=== PATIENT | male | born 1955 | race Caucasian/White ===

== ENCOUNTER 2022-03-18 16:34 | Emergency (ER) | payer OTHER, SELFPAY ==
[2022-03-18 16:39] VITALS: BP 112/78; PULSE 69; RESP 18; TEMP 37; O2SAT 99; BMI 23.2
--- NOTE | 2022-03-18 16:41 | ED_ITS ---
HPI - Wound/Laceration General Time Seen by Provider: 16:41 Date Seen: 03/18/22 Chief Complaint: Laceration/Wound Stated Complaint: Left Index Finger Lac - Hatchet Time Seen by Provider: 03/18/22 16:39 Source: patient and RN notes reviewed Mode of arrival: ambulatory Limitations: no limitations History of Present Illness HPI narrative: Patient is a 66-year-old male coming in with a left finger laceration. He was cutting wood for his fire stove with a hatchet and accidentally cut his left 2nd finger. He feels it is deep. [place] is [place] in outside of the left 2nd finger. He denies any numbness tingling. He had his tetanus updated on 03/11/2022. He states the finger bled quite a bit, did stop with the dressing he put on it. No blood thinners, nothing else was injured. This happened just prior to arrival. Onset (ago): minute(s) Location: other (Left 2nd finger) Patient tetanus UTD: Yes Context: accidental Treatments prior to arrival: bandage Related Data Home Medications Medication Instructions Recorded Confirmed No Known Home Medications 03/18/22 03/18/22 Allergies Allergy/AdvReac Type Severity Reaction Status Date / Time amoxicillin Allergy Verified 03/18/22 16:40 Review of Systems Narrative: As per HPI Exam Const: Vital Signs, click to edit/add: Vital Signs - 24 hr 03/18/22 16:39 Temperature 98.6 F Pulse Rate [Right Pulse Oximeter] 69 Respiratory Rate 18 Blood Pressure [Ri ght Upper Arm] 112/78 Pulse Oximetry 99 Oxygen Delivery Me thod Room Air Documenting provider has reviewed patient's vital signs: yes Common normals: no apparent distress, average body habitus, healthy appearing and alert Other: Had a dressing on the left 2nd finger with no active bleeding. When the dressing was removed he had a V shaped laceration along the lateral proximal digit just after the metacarpophalangeal joint. It did extend into the subcutaneous tissue but not deeper. There was actively oozing whenever pressure was taken off. That this would benefit in require sutures, patient agrees. He had normal distal sensation, full range of motion of his finger without any limitations. Strength on flexion and extension throughout this digit was preserved. Neuro: Sensorium/orientation: alert Course Vital Signs Vital signs: Initial Vital Signs Temperature 98.6 F 03/18/22 16:39 Temperature Source Temporal Artery Scan 03/18/22 16:39 Pulse Rate 69 03/18/22 16:39 Respiratory Rate 18 03/18/22 16:39 Blood Pressure 112/78 03/18/22 16:39 Blood Pressure Mean 89 03/18/22 16:39 Blood Pressure Position Sitting 03/18/22 16:39 Pulse Oximetry 99 03/18/22 16:39 Oxygen Delivery Method 03/18/22 16:39 Vital Signs Temperature 98.6 F 03/18/22 16:39 Pulse Rate 69 03/18/22 16:39 Respiratory Rate 18 03/18/22 16:39 Blood Pressure 112/78 03/18/22 16:39 Pulse Oximetry 99 03/18/22 16:39 Oxygen Delivery Method 03/18/22 16:39 Temperature 98.6 F 03/18/22 16:39 Pulse Rate 69 03/18/22 16:39 Respiratory Rate 18 03/18/22 16:39 Blood Pressure 112/78 03/18/22 16:39 Pulse Oximetry 99 03/18/22 16:39 Oxygen Delivery Method 03/18/22 16:39 Critical Care Time Critical Care Time Critical Care Time: No Discharge Plan Discharge Clinical Impression: Finger laceration Patient Disposition: Home, Self-Care Condition: Stable Instructions: Care For Your Stitches (ED), Finger Laceration (ED) Additional Instructions: May bathe and wash hands as you normally would but otherwise keep this wound clean and dry until healed. Use bandages to protect the wound from infection if you are out in public or if active with this hand. Can use bacitracin and bandages as needed for a dressing. If there is any concern for infection, need to seek re-evaluation. Otherwise, schedule a clinic appointment for March 26 in clinic to assess the wound for suture removal. Activity Level: Activity as Tolerated Prescriptions: No Action No Known Home Medications Follow Up/Referrals: Aly Lopez MD [Primary Care Provider] - Stand Alone Forms: [facility] Info Instructions Procedures Laceration Laceration 1: Pre procedure diagnosis: Finger laceration Post procedure diagnosis: Same Site marking: not applicable Name of person performing procedure: Lucila Marcelo Site: hand Side (If applicable): left Size (cm): 1 Description: other (V shaped) Depth: simple, single layer Local Anesthetic: lidocaine 1% and with epi Amount of anesthesia used (mL): 5 (4 mL were infiltrated around the wound which was adequate for anesthesia) Skin layer closed with: other (Ethilon) Size (cm): 4-0 Number of sutures: 5 Technique: simple, interrupted Estimated blood loss (if any): less than 5mls Conclusion: patient tolerated procedure
== END 2022-03-18 17:22 | disposition home or self-care (01) ==
PROVIDERS: Emergency Provider Family Medicine; PCP Family Medicine
DX: S61.211A Laceration without foreign body of left index finger without damage to nail, initial encounter (principal); W27.0XXA Contact with workbench tool, initial encounter
CPT/HCPCS: 12001; 99283

== ENCOUNTER 2022-08-17 20:04 | Outpatient (CLI) | payer MEDICARE, BC, SELFPAY | END 2022-08-17 20:05 | disposition home or self-care (01) | LOC: AMB 08-24 09:51 | PROVIDERS: PCP Family Medicine; Visit Provider Family Medicine | DX: R55 Syncope and collapse (principal) | CPT/HCPCS: A0425; A0427 ==

== ENCOUNTER 2022-08-17 20:38 | Emergency (ER) | payer MEDICARE, BC, SELFPAY ==
[2022-08-17] VITALS (7 sets, daily range): BP systolic 114–138; BP diastolic 76–83; PULSE 76–89; RESP 16; TEMP 35.9–36.6; O2SAT 94–98; BMI 23.5
--- NOTE | 2022-08-17 21:03 | CRLHL7_ITS ---
For Patients: As a result of the Century Cures Act, medical imaging exams and procedure reports are released immediately into your electronic medical record. You may view this report before your referring provider. If you have questions, please contact your health care provider. INDICATION: Syncope. TECHNIQUE: Noncontrast CT images acquired through the brain. COMPARISON: CT brain 10/27/2019. FINDINGS: Mild diffuse cerebral volume loss. No mass effect or midline shift. The sanchez-white differentiation is maintained. No acute intracranial hemorrhage age or pathologic extra-axial fluid collection. Atherosclerotic calcifications in the carotid siphons. The globes are symmetric. The calvarium is intact. The right maxillary sinus is completely opacified, contains heterogeneous hyperattenuation, and demonstrates mucoperiosteal wall thickening. Opacification of the right middle meatus. The mastoid air cells are clear. IMPRESSION: 1. No acute intracranial hemorrhage or mass effect. 2. Severe opacification of the right maxillary sinus and sequelae of chronic sinusitis. Heterogeneous intrasinus hyperattenuation may be secondary to inspissated secretions or fungal colonization. The right middle meatus is opacified. Findings raise the possibility of an underlying sinonasal lesion or mucocele. ENT follow-up is recommended. Please note that all CT scans at this facility use dose modulation, iterative reconstruction, and/or weight-based dosing when appropriate to reduce radiation dose to as low as reasonably achievable. Dictated by Sravan Zayas MD @ 08/17/2022 9:48:03 PM (Electronically Signed)
[2022-08-17] MEDS: LACTATED RINGERS 1000 ML 1,000 ML IV (21:04)
[2022-08-17 21:15] LABS: Basophils Absolute Auto 0.02 K/uL (0.00-0.30); Basophils Percent Auto 0.3 % (0.0-3.0); Hematocrit 39.9 % (37.0-53.0); Hemoglobin* 13.4 gm/dL (13.5-17.5); Lymphocytes Percent Auto 9.8 % (20-44); Mean Corpuscular HGB Conc 34 gm/dL (32-36); Mean Corpuscular Hemoglobin 31 pg (26-34); Mean Corpuscular Volume 93 fL (80-100); Monocytes Percent Auto 4.4 % (0.0-11.0); Neutrophils Percent Auto 85.5 % (42.0-72.0); Platelet Count* 200 K/uL (140-440); RDW Coefficient of Variation % 11.9 % (11.5-15.5); Red Blood Count 4.27 m/uL (4.30-5.90); White Blood Count* 7.56 K/uL (4.50-11.00)
[2022-08-17 21:16] LABS: Slide Review Reflex No
[2022-08-17 21:32] LABS: Chloride* 109 mmol/L (96-114); Sodium* 140 mmol/L (135-149)
[2022-08-17 21:33] LABS: Potassium* 4.9 mmol/L (3.6-5.1)
[2022-08-17 21:35] LABS: Alanine Aminotransferase* 21 U/L (4-50); Alkaline Phosphatase* 51 U/L (40-150); Aspartate Amino Transferase* 25 U/L (12-35); Bilirubin Total* 0.3 mg/dL (0.1-1.5); Blood Urea Nitrogen* 27 mg/dL (7-30); Carbon Dioxide* 23 mmol/L (20-32); Creatinine* 1.2 mg/dL (0.5-1.5); Est. Creatinine Clearance* 69.36; Estimated Glomerular Filt Rate 67 ml/min; Glucose* 107 mg/dL (60-115); Total Protein* 6.6 g/dL (6.0-8.3)
[2022-08-17 21:36] LABS: Calcium* 9.5 mg/dL (8.4-10.6)
[2022-08-17 21:47] LABS: Troponin I* 0.01 ng/mL (0.01-0.04)
--- NOTE | 2022-08-17 23:01 | ED_ITS ---
HPI - General Adult General Date Seen: 08/17/22 Chief complaint: Syncope/Fainted Stated complaint: Syncope Time Seen by Provider: 08/17/22 20:45 Source: patient Mode of arrival: EMS Limitations: no limitations History of Present Illness HPI narrative: Patient is a 67-year-old male who was out for a two or bike ride with his normal group. He felt fine during the ride although did notice the air pollution. No significant breathing issues. After the ride they went to a local brewery and he had one beer. Towards the end of the beer he felt his vision closing in and got sweaty and pale. As he lost consciousness his friends lowered him to the ground. Two retired physician's were with him. There is no seizure activity. No palpitations preceding this. As he came to and attempted to sit up he felt lightheaded again and was laid back down. EMS was called and they found him to have a blood pressure of 60/27. He was given 500 mL of fluid and brought to the emergency department. Denies any chest pains, palpitations, shortness of breath. He had one brief and less severe episode like this a couple of weeks ago. He takes no medications regularly. He felt that he was well hydrated. He did eat lunch today and did eat a salad before his bike ride. Related Data Previous Rx's Medication Instructions Recorded cefdinir 300 mg capsule 300 mg PO BID #20 caps 08/17/22 fluticasone propionate 50 2 spray intranasal DAILY #16 grams 08/17/22 mcg/actuation nasal spray,suspension (Flonase Allergy Relief) Allergies Allergy/AdvReac Type Severity Reaction Status Date / Time amoxicillin Allergy Verified 03/18/22 16:40 Review of Systems Narrative: Review of systems is positive for chronic nasal congestion and some headaches over the past week or two. Review of systems in all other areas is noted to be negative. [facility] Medical History (Updated 08/17/22 @ 22:12 by Ousmane Craig MD) Asthma ?J45.909 - Unspecified asthma, uncomplicated (ICD-10) Social History Smoking Status: Never smoker Do you use any of these nicotine containing products: None How often do you have a drink containing alcohol: monthly or less AUDIT-C Alcohol total score: 1 Non-prescribed substance use: denies use Exam Narrative: Exam Narrative: Vitals noted. He is no longer hypotensive or tachycardic. HEENT: Conjunctiva clear. Tympanic membranes are pearly white bilaterally. Right nasal congestion. Mild tenderness over the right maxillary sinus. Posterior pharynx is clear without erythema or exudate. Neck is supple without adenopathy, thyromegaly, carotid bruit. Lungs: Clear to auscultation in all calderon. No wheezes, rales, rhonchi. Heart: Regular rate and rhythm without murmur. Abdomen: Soft and nontender. No guarding, rigidity, rebound. Bowel sounds are normal. No palpable masses. Extremities: No cyanosis or edema. Good distal pulses. Skin: No abnormalities noted of the exposed skin. Neurologic: Awake, alert, fully oriented. Neurologic exam is nonfocal. Const: Vital Signs, click to edit/add: Vital Signs - 24 hr 08/17/22 20:43 08/17/22 20:54 08/17/22 21:02 Temperature 96.7 F L 97.8 F Pulse Rate 83 Pulse Rate [Left P ulse Oximeter] 79 Pulse Rate [orthos tatic lying] Pulse Rate [orthos tatic sitting] Pulse Rate [orthos tatic standing] Respiratory Rate 16 16 16 Blood Pressure 123/80 Blood Pressure [Ri ght Upper Arm] 120/80 114/76 Blood Pressure [or thostatic lying] Blood Pressure [or thostatic sitting] Blood Pressure [or thostatic standing ] Pulse Oximetry 98 97 97 Oxygen Delivery Me od Room Air Room Air 08/17/22 21:32 08/17/22 21:47 08/17/22 22:02 Temperature Pulse Rate 81 76 82 Pulse Rate [Left P ulse Oximeter] Pulse Rate [orthos tatic lying] Pulse Rate [orthos tatic sitting] Pulse Rate [orthos tatic standing] Respiratory Rate Blood Pressure 126/79 124/76 138/83 Blood Pressure [Ri ght Upper Arm] Blood Pressure [or thostatic lying] Blood Pressure [or thostatic sitting] Blood Pressure [or thostatic standing ] Pulse Oximetry 96 94 95 Oxygen Delivery Me thod 08/17/22 22:26 Temperature Pulse Rate Pulse Rate [Left P ulse Oximeter] Pulse Rate [orthos tatic lying] 89 Pulse Rate [orthos tatic sitting] 82 Pulse Rate [orthos tatic standing] 79 Respiratory Rate Blood Pressure Blood Pressure [Ri ght Upper Arm] Blood Pressure [or thostatic lying] 132/81 Blood Pressure [or thostatic sitting] 134/79 Blood Pressure [or thostatic standing ] 126/83 Pulse Oximetry Oxygen Delivery Me thod Course Course Hospital Course: Patient seen and examined. IV is established and he is given a L of lactated Ringer's. Labs are ordered. CT of his head without contrast is ordered. Reevaluation(s) Reevaluation #1: His labs are all returned with normal findings including CBC, BMP, LFTs, troponin. TSH is mildly elevated at 6.76. He has no further lightheadedness since the IV fluids. The CT of his head does show complete opacification of his right maxillary sinus and an underlying mass cannot be fully excluded. He does tell me that he has had some congestion in his right cheek as well as headaches. Vital Signs Vital signs: Initial Vital Signs Temperature 96.7 F L 08/17/22 20:43 Temperature Source Temporal Artery Scan 08/17/22 20:43 Pulse Rate 79 08/17/22 20:43 Pulse Rhythm Regular 08/17/22 20:43 Respiratory Rate 16 08/17/22 20:43 Blood Pressure 120/80 08/17/22 20:43 Blood Pressure Mean 93 08/17/22 20:43 Blood Pressure Position Supine 08/17/22 20:43 Pulse Oximetry 98 08/17/22 20:43 Oxygen Delivery Method Room Air 08/17/22 20:43 Vital Signs Temperature 96.7 F L 08/17/22 20:43 Pulse Rate 79 08/17/22 20:43 Respiratory Rate 16 08/17/22 20:43 Blood Pressure 120/80 08/17/22 20:43 Pulse Oximetry 98 08/17/22 20:43 Oxygen Delivery Method Room Air 08/17/22 20:43 Temperature 97.8 F 08/17/22 21:02 Pulse Rate 89 08/17/22 22:26 Respiratory Rate 16 08/17/22 21:02 Blood Pressure 132/81 08/17/22 22:26 Pulse Oximetry 95 08/17/22 22:02 Oxygen Delivery Method Room Air 08/17/22 20:54 Medical Decision Making MDM Narrative Medical decision making narrative: I suspect that his syncope was related to over exertion in the heat and some component of dehydration. Nothing to suggest arrhythmia. In regard to his chronic appearing a right maxillary sinusitis I have opted to treat him with Omnicef and Flonase and have him follow-up with ENT. Lab Data Labs: Lab Results 08/17/22 08/17/22 08/17/22 Range/Units 21:10 21:10 21:10 WBC 7.56 (4.50-11.00) K/uL RBC 4.27 L (4.30-5.90) m/uL Hgb 13.4 L (13.5-17.5) gm/dL Hct 39.9 (37.0-53.0) % MCV 93 (80-100) fL MCH 31 (26-34) pg MCHC 34 (32-36) gm/dL RDW Coeff of Maxine 11.9 (11.5-15.5) % Plt Count 200 (140-440) K/uL Neut % (Auto) 85.5 H (42.0-72.0) % Lymph % (Auto) 9.8 L (20-44) % Houghton % (Auto) 4.4 (0.0-11.0) % Eos % (Auto) 0.0 (0.0-7.0) % Baso % (Auto) 0.3 (0.0-3.0) % Neut # (Auto) 6.50 (1.7-7.0) K/uL Lymph # (Auto) 0.70 L (0.90-2.90) K/uL [place] # (Auto) 0.30 (0.00-0.90) K/UL Eos # (Auto) 0.00 (0.00-0.50) K/uL Baso # (Auto) 0.02 (0.00-0.30) K/uL Sodium 140 (135-149) mmol/L Potassium 4.9 (3.6-5.1) mmol/L Chloride 109 (96-114) mmol/L Carbon Dioxide 23 (20-32) mmol/L BUN 27 (7-30) mg/dL Creatinine 1.2 (0.5-1.5) mg/dL Estimated Creat Clear 69.36 Estimated GFR 67 ml/min Glucose 107 (60-115) mg/dL Calcium 9.5 (8.4-10.6) mg/dL Total Bilirubin 0.3 Cancelled (0.1-1.5) mg/dL Direct Bilirubin 0.0 Cancelled (0.0-0.5) mg/dL AST 25 (12-35) U/L ALT (4-50) U/L Alkaline Phosphatase (40-150) U/L Troponin I (0.01-0.04) ng/mL Total Protein (6.0-8.3) g/dL Albumin (3.3-5.0) g/dL TSH (0.270-4.20) uIU/mL 08/17/22 08/17/22 08/17/22 Range/Units 21:10 21:10 21:10 WBC (4.50-11.00) K/uL RBC (4.30-5.90) m/uL Hgb (13.5-17.5) gm/dL Hct (37.0-53.0) % MCV (80-100) fL MCH (26-34) pg MCHC (32-36) gm/dL RDW Coeff of Maxine (11.5-15.5) % Plt Count (140-440) K/uL Neut % (Auto) (42.0-72.0) % Lymph % (Auto) (20-44) % Houghton % (Auto) (0.0-11.0) % Eos % (Auto) (0.0-7.0) % Baso % (Auto) (0.0-3.0) % Neut # (Auto) (1.7-7.0) K/uL Lymph # (Auto) (0.90-2.90) K/uL [place] # (Auto) (0.00-0.90) K/UL Eos # (Auto) (0.00-0.50) K/uL Baso # (Auto) (0.00-0.30) K/uL Sodium (135-149) mmol/L Potassium (3.6-5.1) mmol/L Chloride (96-114) mmol/L Carbon Dioxide (20-32) mmol/L BUN (7-30) mg/dL Creatinine (0.5-1.5) mg/dL Estimated Creat Clear Estimated GFR ml/min Glucose (60-115) mg/dL Calcium (8.4-10.6) mg/dL Total Bilirubin (0.1-1.5) mg/dL Direct Bilirubin (0.0-0.5) mg/dL AST Cancelled (12-35) U/L ALT 21 Cancelled (4-50) U/L Alkaline Phosphatase 51 Cancelled (40-150) U/L Troponin I 0.01 (0.01-0.04) ng/mL Total Protein 6.6 (6.0-8.3) g/dL Albumin (3.3-5.0) g/dL TSH (0.270-4.20) uIU/mL 08/17/22 08/17/22 Range/Units 21:10 21:10 WBC (4.50-11.00) K/uL RBC (4.30-5.90) m/uL Hgb (13.5-17.5) gm/dL Hct (37.0-53.0) % MCV (80-100) fL MCH (26-34) pg MCHC (32-36) gm/dL RDW Coeff of Maxine (11.5-15.5) % Plt Count (140-440) K/uL Neut % (Auto) (42.0-72.0) % Lymph % (Auto) (20-44) % [place] % (Auto) (0.0-11.0) % Eos % (Auto) (0.0-7.0) % Baso % (Auto) (0.0-3.0) % Neut # (Auto) (1.7-7.0) K/uL Lymph # (Auto) (0.90-2.90) K/uL [place] # (Auto) (0.00-0.90) K/UL Eos # (Auto) (0.00-0.50) K/uL Baso # (Auto) (0.00-0.30) K/uL Sodium (135-149) mmol/L Potassium (3.6-5.1) mmol/L Chloride (96-114) mmol/L Carbon Dioxide (20-32) mmol/L BUN (7-30) mg/dL Creatinine (0.5-1.5) mg/dL Estimated Creat Clear Estimated GFR ml/min Glucose (60-115) mg/dL Calcium (8.4-10.6) mg/dL Total Bilirubin (0.1-1.5) mg/dL Direct Bilirubin (0.0-0.5) mg/dL AST (12-35) U/L ALT (4-50) U/L Alkaline Phosphatase (40-150) U/L Troponin I (0.01-0.04) ng/mL Total Protein Cancelled (6.0-8.3) g/dL Albumin 4.0 Cancelled (3.3-5.0) g/dL TSH 6.760 H (0.270-4.20) uIU/mL Discharge Plan Discharge Clinical Impression: Syncope due to orthostatic hypotension Patient Disposition: Home, Self-Care Condition: Improved Instructions: Syncope (ED) Additional Instructions: Push fluids and stay well hydrated while biking. Start Omnicef 300 mg twice a day for 10 days for your sinus infection. Flonase two puffs each nostril daily. Follow-up with Dr. Lopez next week. Schedule follow-up with ENT to discuss your CT results. Prescriptions: New fluticasone propionate [Flonase Allergy Relief] 50 mcg/actuation spray,suspension 2 spray intranasal DAILY Qty: 16 1RF Rx Instructions: administer into each nostril cefdinir 300 mg capsule 300 mg PO BID Qty: 20 0RF Follow Up/Referrals: Aly Lopez MD [Primary Care Provider] - Stand Alone Forms: [employer] Info Instructions
== END 2022-08-17 22:29 | disposition home or self-care (01) ==
PROVIDERS: Emergency Provider Family Medicine; PCP Family Medicine
DX: I95.1 Orthostatic hypotension (principal); R55 Syncope and collapse
CPT/HCPCS: 36415; 70450; 80048; 80076; 84443; 84484; 85025; 93005; 96360; 99283; 99284; J7120

== ENCOUNTER 2022-12-02 11:51 | Emergency (ER) | payer MEDICARE, BC, SELFPAY ==
[2022-12-02 11:57] VITALS: BP 117/78; PULSE 67; RESP 16; TEMP 37; O2SAT 97; BMI 23.5
--- NOTE | 2022-12-02 12:05 | ED_ITS ---
HPI - Wound/Laceration General Time Seen by Provider: 12:06 Date Seen: 12/02/22 Chief Complaint: Laceration/Wound Stated Complaint: Lac on scalp Time Seen by Provider: 12/02/22 12:05 Source: patient, RN notes reviewed and old records reviewed Mode of arrival: ambulatory Limitations: no limitations History of Present Illness HPI narrative: 67-year-old male with history of orthostatic hypotension and syncope presents today with head injury today. Patient set up and hit his head on the at back of a car. No loss of consciousness no other injury. Related Data Previous Rx's Medication Instructions Recorded cefdinir 300 mg capsule 300 mg PO BID #20 caps 08/17/22 fluticasone propionate 50 2 spray intranasal DAILY #16 grams 08/17/22 mcg/actuation nasal spray,suspension (Flonase Allergy Relief) Allergies Allergy/AdvReac Type Severity Reaction Status Date / Time amoxicillin Allergy Verified 12/02/22 11:57 Review of Systems Status of ROS: Reports: 10 or more systems reviewed and unremarkable except as noted in History and below [facility] Medical History (Updated 12/02/22 @ 12:20 by Donavan Lopez MD) Asthma ?J45.909 - Unspecified asthma, uncomplicated (ICD-10) Social History Smoking Status: Never smoker Do you use any of these nicotine containing products: None How often do you have a drink containing alcohol: monthly or less AUDIT-C Alcohol total score: 1 Non-prescribed substance use: denies use Exam Narrative: Exam Narrative: General: well nourished , NAD Head: 2 cm laceration of the top of the head just right of midline, mostly superficial but on the medial edge there is a 3 mm full-thickness portion Neck: No midline cervical tenderness, full spontaneous ROM of then neck ENT: External ears and external nose are normal Eyes: Conjunctiva clear, pupils are equal reactive, external ocular motions are intact Neck: Full spontaneous range of motion of the neck Lungs: No respiratory distress Musculoskeletal: No tenderness or deformity Neurologic: No gross focal neurologic deficits Skin: No rashes Psych: Mood and affect are appropriate Const: Vital Signs, click to edit/add: Vital Signs - 24 hr 12/02/22 11:57 Temperature 98.6 F Pulse Rate [Pulse Oximeter] 67 Respiratory Rate 16 Blood Pressure [Ri ght Upper Arm] 117/78 Pulse Oximetry 97 Oxygen Delivery Me thod Room Air Course Course ED Course: Patient seen examined, prior records reviewed. Patient presents today with a scalp laceration. This is mostly superficial but there is a 3 mm deeper area. No active bleeding. Discussed options for repair, this appears to me amenable to the tissue adhesive with no gap and no active bleeding. Wound was cleansed with Shur-Clens and tissue adhesive was applied. No other injury, no loss of conscious, follow-up, no blood thinner, low risk for intracranial injury so no indication for head CT. Vital Signs Vital signs: Initial Vital Signs Temperature 98.6 F 12/02/22 11:57 Temperature Source Temporal Artery Scan 12/02/22 11:57 Pulse Rate 67 12/02/22 11:57 Respiratory Rate 16 12/02/22 11:57 Blood Pressure 117/78 12/02/22 11:57 Blood Pressure Mean 91 12/02/22 11:57 Blood Pressure Position Sitting 12/02/22 11:57 Pulse Oximetry 97 12/02/22 11:57 Oxygen Delivery Method Room Air 12/02/22 11:57 Vital Signs Temperature 98.6 F 12/02/22 11:57 Pulse Rate 67 12/02/22 11:57 Respiratory Rate 16 12/02/22 11:57 Blood Pressure 117/78 12/02/22 11:57 Pulse Oximetry 97 12/02/22 11:57 Oxygen Delivery Method Room Air 12/02/22 11:57 Temperature 98.6 F 12/02/22 11:57 Pulse Rate 67 12/02/22 11:57 Respiratory Rate 16 12/02/22 11:57 Blood Pressure 117/78 12/02/22 11:57 Pulse Oximetry 97 12/02/22 11:57 Oxygen Delivery Method Room Air 12/02/22 11:57 Discharge Plan Discharge Clinical Impression: Laceration of scalp Patient Disposition: Home, Self-Care Condition: Stable Instructions: Laceration (DC), Skin Adhesive Care (ED) Activity Level: No Restrictions Discharge Diet: Regular Prescriptions: No Action fluticasone propionate [Flonase Allergy Relief] 50 mcg/actuation spray,suspension 2 spray intranasal DAILY Qty: 16 1RF Rx Instructions: administer into each nostril cefdinir 300 mg capsule 300 mg PO BID Qty: 20 0RF Follow Up/Referrals: Aly Lopez MD [Primary Care Provider] - Stand Alone Forms: [employer] Info Instructions
== END 2022-12-02 12:27 | disposition home or self-care (01) ==
LOC: ED 12:22
PROVIDERS: Emergency Provider Family Medicine; PCP Family Medicine
DX: S01.01XD Laceration without foreign body of scalp, subsequent encounter (principal); W22.09XD Striking against other stationary object, subsequent encounter
CPT/HCPCS: 12001; 99282; 99284

== ENCOUNTER 2023-05-25 11:30 | Emergency (ER) | payer MEDICARE, BC, SELFPAY ==
[2023-05-25 11:35] VITALS: BP 113/70; PULSE 90; RESP 16; TEMP 36.6; O2SAT 94; BMI 23.7
--- NOTE | 2023-05-25 12:02 | ED.GENADULT ---
HPI - General Adult General Chief complaint: Fever Stated complaint: RSV Time Seen by Provider: 05/25/23 11:32 History of Present Illness HPI narrative: This 67-year-old male comes in stating that he has RSV. Symptoms began about 4 days ago and 2 days ago he went into urgent care and was diagnosed with RSV. At that time he received a prescription for prednisone. He developed a fever yesterday and call the clinic today and was told to come to the emergency department. He arrives here with normal vital signs. His oximetry is at 94% on room air and his temperature is normal. He is not tachycardic. He states that he did not sleep so well last night because of persistent coughing. Related Data Home Medications Medication Instructions Recorded Confirmed albuterol sulfate 90 mcg/actuation 1 inh inhalation ONCE 05/23/23 05/23/23 aerosol inhaler Previous Rx's Medication Instructions Recorded prednisone 20 mg tablet 40 mg (2 x 20 mg) PO QDAY 5 days 05/23/23 #10 tabs acetaminophen 300 mg-codeine 30 mg 1 tab PO Q6H PRN pain #15 tabs 05/25/23 tablet Allergies Allergy/AdvReac Type Severity Reaction Status Date / Time amoxicillin Allergy Verified 05/23/23 17:05 Review of Systems Status of ROS: Reports: 10 or more systems reviewed and unremarkable except as noted in History and below Narrative: Constitutional: No weight gain or loss. Eyes: No discharge. No vision changes. HENT: No congestion, no sore throat, no ear pain. Cardiovascular: No chest pain, no palpitations. Respiratory: No shortness of breath. Coughing. Gastrointestinal: No abdominal pain, no vomiting, no diarrhea. Genitourinary: No dysuria, no hematuria. Musculoskeletal: Normal range of motion. Skin: No rashes, no pruritis. Neurological: No dizziness, weakness, sensory change, speech change. Endo/Heme/Allergies: No bruising or bleeding. No polydipsia. Pysch: no suicidality, no anxiety, no insomnia. All other systems reviewed and are negative. [facility] Medical History (Updated 05/25/23 @ 12:09 by Tonio Mcdaniel) Asthma ?J45.909 - Unspecified asthma, uncomplicated (ICD-10) Social History Smoking Status: Never smoker Do you use any of these nicotine containing products: None How often do you have a drink containing alcohol: monthly or less AUDIT-C Alcohol total score: 1 Non-prescribed substance use: denies use Exam Narrative: Exam Narrative: Constitutional: Well-developed, well-nourished, no acute distress. HEENT: Normocephalic, atraumatic. Neck: Normal range of motion. Nontender. Supple. Heart: Regular. No murmurs. Normal rate. Intact distal pulses. Lungs: Clear to auscultation. No chest discomfort. No wheezes, rhonchi, or rales. Abdomen: Normal bowel sounds. Nontender. No rebound tenderness. Genitalia: Deferred. Back: No midline tenderness. Normal range of motion. Extremities: Normal range of motion. No injury. Skin: Intact. No rash. Warm. No erythema or pallor. Neurologic: No altered sensation. No weakness. Alert and oriented. Psychiatric: No suicidality. No anxiety or depression. No insomnia. Nursing notes and vitals signs are reviewed. Const: Vital Signs, click to edit/add: Vital Signs - 24 hr 05/25/23 11:35 Temperature 98 F Pulse Rate [Pulse Oximeter] 90 Respiratory Rate 16 Blood Pressure [Ri ght Upper Arm] 113/70 Pulse Oximetry 94 Oxygen Delivery Me thod Room Air Course Vital Signs Vital signs: Initial Vital Signs Temperature 98 F 05/25/23 11:35 Temperature Source Temporal Artery Scan 05/25/23 11:35 Pulse Rate 90 05/25/23 11:35 Respiratory Rate 16 05/25/23 11:35 Blood Pressure 113/70 05/25/23 11:35 Blood Pressure Mean 84 05/25/23 11:35 Blood Pressure Position Sitting 05/25/23 11:35 Pulse Oximetry 94 05/25/23 11:35 Oxygen Delivery Method Room Air 05/25/23 11:35 Vital Signs Temperature 98 F 05/25/23 11:35 Pulse Rate 90 05/25/23 11:35 Respiratory Rate 16 05/25/23 11:35 Blood Pressure 113/70 05/25/23 11:35 Pulse Oximetry 94 05/25/23 11:35 Oxygen Delivery Method Room Air 05/25/23 11:35 Temperature 98 F 05/25/23 11:35 Pulse Rate 90 05/25/23 11:35 Respiratory Rate 16 05/25/23 11:35 Blood Pressure 113/70 05/25/23 11:35 Pulse Oximetry 94 05/25/23 11:35 Oxygen Delivery Method Room Air 05/25/23 11:35 Medical Decision Making MDM Narrative Medical decision making narrative: This patient has been diagnosed with RSV and comes in for recheck stating that he is feeling worse recently. He states that he had a fever but arrives here with normal vital signs and is afebrile. Also on his exam his lungs sound clear with good air movement. I did discuss lab and imaging options but indicated that this virus will need to run its course and most people, though not feeling well, will do okay. He is currently taking prednisone. I did provide prescription for some tablets of Tylenol 3 for symptomatic relief. I advised him regarding signs and symptoms that would indicate a need for return and re-evaluation. Discharge Plan Discharge Clinical Impression: RSV (respiratory syncytial virus infection) Additional Instructions: Continue prednisone as prescribed. Take Tylenol 3 also as needed and directed. Follow up with primary physician as needed or return if worsening symptoms happen. Prescriptions: New acetaminophen-codeine 300-30 mg tablet 1 tab PO Q6H PRN (Reason: pain) Qty: 15 0RF No Action albuterol sulfate 90 mcg/actuation HFA aerosol inhaler 1 inh inhalation ONCE prednisone 20 mg tablet 40 mg PO QDAY 5 Days Qty: 10 0RF Follow Up/Referrals: Aly Lopez MD [Primary Care Provider] - Stand Alone Forms: [employer] Info Instructions
== END 2023-05-25 12:16 | disposition home or self-care (01) ==
LOC: ED 12:03
PROVIDERS: Emergency Provider Emergency Medicine Emergency Medical Services; PCP Family Medicine
DX: R50.9 Fever, unspecified (principal); B97.4 Respiratory syncytial virus as the cause of diseases classified elsewhere
CPT/HCPCS: 99283; 99284

== ENCOUNTER 2023-05-27 09:51 | Emergency (ER) | payer MEDICARE, BC, SELFPAY ==
[2023-05-27 09:55] VITALS: BP 152/82; PULSE 70; RESP 18; TEMP 36.7; O2SAT 95; BMI 23.7
--- NOTE | 2023-05-27 10:13 | XR_ITS ---
Patient: AILYN BENITEZ Facility:?[facility] Patient ID:?[id number] Site Patient ID:?[id number]. Site :?[id number] Study:?XRay-Chest 2 view-05/27/2023 10:34:45 AM Ordering Physician:Karen Beltran Final Report: INDICATION: RSV with worsening cough COMPARISON: January 10, 2021 TECHNIQUE: PA and lateral views of the chest were acquired FINDINGS: TUBES AND LINES: None. HEART AND MEDIASTINUM: The heart size is normal. The mediastinal contour appears normal for patient age. LUNGS AND PLEURAL SPACES: The lungs appear normal.The pleural spaces are unremarkable. OSSEOUS STRUCTURES: Age-appropriate appearance. No acute focal finding.Incidental old rib fractures. IMPRESSION: No evidence of active pulmonary disease. Dictated by Kartik Lebron MD @ 05/27/2023 10:46:08 AM Signed by:?Kartik Lebron MD @05/27/2023 10:46:08 AM (Electronic Signature)
--- NOTE | 2023-05-27 10:56 | ED.GENADULT ---
HPI - General Adult General Date Seen: 05/27/23 Chief complaint: Cough Stated complaint: RSV/ lungs sound weird Time Seen by Provider: 05/27/23 09:53 Source: patient Mode of arrival: ambulatory Limitations: no limitations History of Present Illness HPI narrative: Patient is a 67-year-old male presenting to the emergency department for increased cough. He states some he was diagnosed with RSV 5 days ago. Came to emergency department a couple days ago to be re-evaluated. Was sent home at that time and was doing well. Was getting better until last night when he states cough started getting worse. Has kept up all day any came back to the emergency department to be re-evaluated. States he will have some mild shortness of breath when he is coughing. Denies fevers, chills, chest pain, weakness, numbness, headache, vision changes, abdominal pain. No other concerns noted at this time he states he has want to get checked out again to make sure he is okay. Related Data Home Medications Medication Instructions Recorded Confirmed albuterol sulfate 90 mcg/actuation 1 inh inhalation ONCE 05/23/23 05/23/23 aerosol inhaler Previous Rx's Medication Instructions Recorded prednisone 20 mg tablet 40 mg (2 x 20 mg) PO QDAY 5 days 05/23/23 #10 tabs acetaminophen 300 mg-codeine 30 mg 1 tab PO Q6H PRN pain #15 tabs 05/25/23 tablet Allergies Allergy/AdvReac Type Severity Reaction Status Date / Time amoxicillin Allergy Verified 05/23/23 17:05 Review of Systems Status of ROS: Reports: 10 or more systems reviewed and unremarkable except as noted in History and below [facility] Medical History Asthma ?J45.909 - Unspecified asthma, uncomplicated (ICD-10) Social History Smoking Status: Never smoker Do you use any of these nicotine containing products: None How often do you have a drink containing alcohol: monthly or less AUDIT-C Alcohol total score: 1 Non-prescribed substance use: denies use Exam Narrative: Exam Narrative: Const: Well-nourished, Well-developed, in no distress Eyes: PERRL, no conjunctival injection, and symmetrical lids HENT: Atraumatic external nose and ears. Moist mucous membranes. Neck: Symmetric, trachea midline, No thyromegaly. CVS: RRR, No murmurs or gallops. Peripheral pulses 2+ and equal in all extremities RESP: Unlabored respiratory effort. Clear to auscultation bilaterally. GI: Nontender/Nondistended, No rebound or guarding. MSK:Extremities w/o deformity, Normal Active ROM Skin: Warm, Dry. No rashes or lesions. Neuro: Normal Muscle tone, No focal neurological deficits. Psych: Awake, Alert, & Oriented x3. Appropriate mood and affect. Const: Vital Signs, click to edit/add: Vital Signs - 24 hr 05/27/23 09:55 Temperature 98.1 F Pulse Rate [Right Pulse Oximeter] 70 Respiratory Rate 18 Blood Pressure [Ri ght Upper Arm] 152/82 H Pulse Oximetry 95 Oxygen Delivery Me thod Room Air Course Vital Signs Vital signs: Initial Vital Signs Temperature 98.1 F 05/27/23 09:55 Temperature Source Temporal Artery Scan 05/27/23 09:55 Pulse Rate 70 05/27/23 09:55 Respiratory Rate 18 05/27/23 09:55 Blood Pressure 152/82 H 05/27/23 09:55 Blood Pressure Mean 105 05/27/23 09:55 Blood Pressure Position Sitting 05/27/23 09:55 Pulse Oximetry 95 05/27/23 09:55 Oxygen Delivery Method Room Air 05/27/23 09:55 Vital Signs Temperature 98.1 F 05/27/23 09:55 Pulse Rate 70 05/27/23 09:55 Respiratory Rate 18 05/27/23 09:55 Blood Pressure 152/82 H 05/27/23 09:55 Pulse Oximetry 95 05/27/23 09:55 Oxygen Delivery Method Room Air 05/27/23 09:55 Temperature 98.1 F 05/27/23 09:55 Pulse Rate 70 05/27/23 09:55 Respiratory Rate 18 05/27/23 09:55 Blood Pressure 152/82 H 05/27/23 09:55 Pulse Oximetry 95 05/27/23 09:55 Oxygen Delivery Method Room Air 05/27/23 09:55 Medical Decision Making MDM Narrative Medical decision making narrative: Patient is a 67-year-old male with known RSV. He was just evaluated 2 days ago and was discharged home. His symptoms now are extremely mild and is mostly complaining about the cough. Will of do a chest x-ray since that has not been done yet. Do not believe lab work is necessary as he looks well and vital signs are all within normal range other than mildly hypertensive. He is agreeable to this plan. Chest x-ray reviewed by myself and the radiologist shows no concerning abnormalities. He is otherwise doing well and I believe he is safe for discharge. He is agreeable to this plan. Imaging Data Chest x-ray: Attestation: I have reviewed the pertinent imaging results. Radiologist's impression: No evidence of active pulmonary disease. Dictated by Kartik Lebron MD @ 05/27/2023 10:46:08 AM Discharge Plan Discharge Clinical Impression: RSV (respiratory syncytial virus infection) Patient Disposition: Home, Self-Care Condition: Stable Instructions: RSV (Respiratory Syncytial Virus) (ED) Additional Instructions: Take Tylenol and ibuprofen as needed for fevers. She cough a likely persist until your lungs are able to clear everything. Sometimes cough can persist for weeks to months. Return to emergency department for new or worsening symptoms. Prescriptions: No Action albuterol sulfate 90 mcg/actuation HFA aerosol inhaler 1 inh inhalation ONCE prednisone 20 mg tablet 40 mg PO QDAY 5 Days Qty: 10 0RF acetaminophen-codeine 300-30 mg tablet 1 tab PO Q6H PRN (Reason: pain) Qty: 15 0RF Follow Up/Referrals: Aly Lopez MD [Primary Care Provider] - Stand Alone Forms: [employer] Info Instructions
== END 2023-05-27 11:23 | disposition home or self-care (01) ==
PROVIDERS: Emergency Provider Student in an Organized Health Care Education/Training Program; PCP Family Medicine
DX: R05.9 Cough, unspecified (principal); B97.4 Respiratory syncytial virus as the cause of diseases classified elsewhere
CPT/HCPCS: 71046; 99282; 99283

== ENCOUNTER 2023-12-20 10:45 | Outpatient (RCR) | payer MEDICARE, BC, SELFPAY | END 2024-04-18 23:59 | disposition home or self-care (01) | PROVIDERS: PCP Family Medicine; Visit Provider Family Medicine | DX: S32.030A Wedge compression fracture of third lumbar vertebra, initial encounter for closed fracture (principal); M54.9 Dorsalgia, unspecified; Z51.89 Encounter for other specified aftercare | CPT/HCPCS: 97110; 97162 ==